=== PATIENT | female | born 1955 | race Caucasian/White ===

== ENCOUNTER → 2017-06-11 | Outpatient (CLI) | payer OTHER ==
[~2017-06-11] MED LIST: ASPIRIN ADULT L81 M3 PO; ATORVASTATIN 4040 MG; CALCIUM1 TA1 PO; FLAX OIL1000 M1 PO; LEVOTHYROXINE0.05 MG NG; LIPITOR40 MG PO; NORCO 325 MG-51 TAB PO; PAXIL20 M1 PO; ZYRTEC10 M2 PO
--- NOTE | 2017-06-11 16:11 | RADIOLOGY REPORT PS360 ---
CHEST(2 VIEWS-NOT PORTABLE) HISTORY: COUGH,EMPHYSEMA ORDERING PHYSICIAN: Liz Miller APRN PATIENT AGE: 62 years COMPARISON: 02/20/2016 FINDINGS: The cardiomediastinal silhouette and pulmonary vascularity are within normal limits. The lungs are clear without infiltrates, suspicious nodules, or pleural effusions. There is calcified granuloma in the right upper lobe unchanged No acute bony abnormalities. IMPRESSION: No change with no acute finding. Old granulomatous disease
== END ==
LOC: RAD 15:49
DX: R05 Cough (principal); J43.1 Panlobular emphysema

== ENCOUNTER → 2017-07-03 | Outpatient (CLI) | payer OTHER | LOC: LAB 09:45 | DX: D49.7 Neoplasm of unspecified behavior of endocrine glands and other parts of nervous system (principal) ==